=== PATIENT | male | born 1970 | race Caucasian/White ===

== ENCOUNTER 2023-12-26 14:12 | Observation (INO) ==
[2023-12-26] MEDS ORDERED: IOPAMIDOL 100 ML BOTTLE IV ONE (14:13)
[2023-12-26] MEDS: HYDROmorphone 1 MG/ML SYRINGE IV ONE ×2 (14:40→16:16)
[2023-12-26 14:50] LABS: Basophils # (Auto) 0.02 K/mcL (0.00-0.30); Basophils % (Auto) 0.2 % (0.0-2.0); Eosinophils # (Auto) 0.05 K/mcL (0.00-0.70); Eosinophils % (Auto) 0.4 % (0.0-7.0); Hematocrit 49.8 % (40.1-51.0); Hemoglobin 17.4 g/dL (13.7-17.5); Lymphocytes # (Auto) 1.58 K/mcL (1.50-4.80); Lymphocytes % (Auto) 12.5 % (15.5-49.0); Mean Cell Volume 82.7 fL (80.0-100.0); Mean Corpuscular HGB Conc 34.9 g/dL (31.0-36.0); Mean Platelet Volume 9.7 fL (8.8-12.5); Monocytes # (Auto) 0.95 K/mcL (0.10-0.90); Monocytes % (Auto) 7.5 % (1.0-12.0); Neutrophils % (Auto) 79.2 % (38.0-78.0); Platelet Count 173 K/mcL (140-440); RBC 6.02 M/mcL (4.63-6.08); Red Cell Distribution Width 11.7 % (11.5-14.5); WBC 12.7 K/mcL (4.5-11.0)
[2023-12-26 15:07] LABS: ALT/SGPT 32 U/L (<40); AST/SGOT 21 U/L (<40); Albumin 4.3 gm/dL (3.2-5.2); Albumin/Globulin Ratio 1.5 (1.0-2.3); Alkaline Phosphatase 66 U/L (39-117); Bilirubin,Total 1.2 mg/dL (0.1-1.0); Blood Urea Nitrogen 12 mg/dL (6-20); Calcium 9.4 mg/dL (8.6-10.4); Carbon Dioxide 25 mmol/L (22-30); Chloride 101 mmol/L (96-108); Globulin 2.9 gm/dL (2.2-3.7); Glomerular Filtration Rate 76; Glucose 111 mg/dL (70-105); Potassium 3.9 mmol/L (3.3-5.1); Sodium 139 mmol/L (133-145)
[2023-12-26 16:14] LABS: Appearance,Urine Clear (Clear); Bilirubin,Urine Negative (Negative); Color,Urine Yellow; Glucose,Urine (UA) Negative (Negative); Ketones,Urine Negative (Negative); Leukocyte Esterase,Urine Negative /uL (Negative); Nitrate,Urine Negative (Negative); Protein,Urine Negative (Negative); Urine Blood Negative ery/mcL (Negative); Urine RBC 0 /hpf (0-3); Urine Squamous Epithelial Cell 0 /hpf (0-4); Urine WBC < 1 /hpf (0-4); Urobilinogen,Urine Normal
[2023-12-26] MEDS: PIPERACILLIN SODIUM/TAZOBACTAM 4.5 GM in DEXTROSE 5% IN WATER 50 ML IV ONE (16:16)
[2023-12-26] MEDS ORDERED: METOCLOPRAMIDE 10 MG/2 ML VIAL IV PRN (18:03)
[2023-12-26] MEDS: metroNIDAZOLE 500 MG/100 ML BAG IV SCH (18:49)
[2023-12-26] MEDS: ACETAMINOPHEN 650 MG/65 ML BAG IV PRN (19:59)
[2023-12-26] MEDS: DEXTROSE 5%-LR 1,000 ML IV SCH (20:00)
[2023-12-26] MEDS: HYDROmorphone 0.5 MG/0.5 ML SYRINGE IV PRN (20:02)
[2023-12-26] MEDS: CIPROFLOXACIN 400 MG/200 ML BAG IV SCH (21:30)
[2023-12-27] MEDS: KETOROLAC 15 MG/ML VIAL IV ONE (00:42)
[2023-12-27] MEDS: KETOROLAC 15 MG/ML VIAL ONE (00:47)
[2023-12-27] MEDS: DEXTROSE 5%-NS W/20MEQ KCL 1,000 ML IV SCH (01:24)
[2023-12-27] MEDS: PIPERACILLIN SODIUM/TAZOBACTAM 3.375 GM in DEXTROSE 5% IN WATER 100 ML IV SCH (01:27)
[2023-12-27 06:31] LABS: Hematocrit 46.6 % (40.1-51.0); Mean Cell Volume 84.7 fL (80.0-100.0); Mean Corpuscular HGB Conc 34.3 g/dL (31.0-36.0); Mean Platelet Volume 9.8 fL (8.8-12.5); Platelet Count 141 K/mcL (140-440); Red Cell Distribution Width 11.9 % (11.5-14.5)
[2023-12-27 06:51] LABS: Blood Urea Nitrogen 15 mg/dL (6-20); Calcium 8.5 mg/dL (8.6-10.4); Carbon Dioxide 26 mmol/L (22-30); Chloride 102 mmol/L (96-108); Glomerular Filtration Rate 68; Glucose 137 mg/dL (70-105); Potassium 3.4 mmol/L (3.3-5.1); Sodium 138 mmol/L (133-145)
[2023-12-27] MEDS ORDERED: KETAMINE 50 MG/ML Syringe IV ONE (11:47)
[2023-12-27] MEDS ORDERED: fentaNYL 100 MCG/2 ML VIAL ONE ×2 (11:47→13:52)
[2023-12-27] MEDS ORDERED: LIDOCAINE 2% PF 5 ML VIAL ONE (11:48)
[2023-12-27] MEDS ORDERED: PROPOFOL 200 MG/20 ML VIAL IV ONE ×2 (11:48→13:50)
[2023-12-27] MEDS ORDERED: GLYCOPYRROLATE 0.2 MG/ML VIAL IV ONE (11:48)
[2023-12-27] MEDS ORDERED: ONDANSETRON 4 MG/2 ML VIAL ONE (11:48)
[2023-12-27] MEDS ORDERED: MIDAZOLAM 2 MG/2 ML VIAL ONE (11:48)
[2023-12-27] MEDS ORDERED: DEXAMETHASONE 10 MG/ML VIAL ONE (11:48)
[2023-12-27] MEDS ORDERED: FAMOTIDINE/PF 20 MG/2 ML VIAL IV ONE (11:51)
[2023-12-27] MEDS ORDERED: SUCCINYLCHOLINE 200 MG/10 ML VIAL IV ONE (12:19)
[2023-12-27] MEDS ORDERED: ROCURONIUM 10 MG/ML ML IV ONE ×2 (12:20→12:39)
[2023-12-27] MEDS ORDERED: PHENYLephrine 1 MG/10 ML SYRINGE (ANEST) ONE (12:25)
[2023-12-27] MEDS ORDERED: 0.9 % SODIUM CHLORIDE 100 ML IV ONE (12:37)
[2023-12-27] MEDS ORDERED: DEXMEDETOMIDINE HCL 200 MCG/2 ML VIAL ONE (12:37)
[2023-12-27] MEDS ORDERED: MAGNESIUM SULFATE 2 GM/50 ML BAG IV ONE (12:37)
[2023-12-27] MEDS ORDERED: HYDROmorphone 0.5 MG/0.5 ML SYRINGE ONE (12:47)
[2023-12-27] MEDS: BUPIVACAINE W/EPI 0.5% 50 ML VIAL IJ ONE (12:49)
[2023-12-27] MEDS ORDERED: KETOROLAC 30 MG/ML VIAL ONE (13:03)
[2023-12-27] MEDS ORDERED: SUGAMMADEX SODIUM 200 MG/2 ML VIAL IV ONE (13:16)
[2023-12-28 06:38] LABS: Hematocrit 43.3 % (40.1-51.0); Mean Cell Volume 84.9 fL (80.0-100.0); Mean Corpuscular HGB Conc 34.6 g/dL (31.0-36.0); Mean Platelet Volume 9.8 fL (8.8-12.5); Platelet Count 147 K/mcL (140-440); Red Cell Distribution Width 11.6 % (11.5-14.5); WBC 12.1 K/mcL (4.5-11.0)
[2023-12-28 06:51] LABS: Blood Urea Nitrogen 11 mg/dL (6-20); Calcium 8.3 mg/dL (8.6-10.4); Carbon Dioxide 22 mmol/L (22-30); Chloride 106 mmol/L (96-108); Glomerular Filtration Rate 97; Glucose 150 mg/dL (70-105); Potassium 4.3 mmol/L (3.3-5.1); Sodium 138 mmol/L (133-145)
[2023-12-28] MEDS: DEXTROSE 5%-NS W/20MEQ KCL 1,000 ML IV SCH (10:59)
[2023-12-28] MEDS: HYDROcodone/APAP 5/325MG TABLET PO PRN (14:39)
== END 2023-12-28 14:50 | disposition home or self-care (01) ==
LOC: MEDSUR 14:12 → ED 14:12 → MEDSUR 19:33
PROVIDERS: ADMIT Surgery Surgical Critical Care; ATTEND Surgery Surgical Critical Care
PROC: LAPAPPY (ICD-10-PCS; 2023-12-27 12:17)